=== PATIENT | male | born 1995 | race Caucasian/White ===

== ENCOUNTER 2022-04-21 22:01 | Emergency (ER) | payer BC, OTHER ==
[2022-04-21 22:17] VITALS: BP 138/84; PULSE 85; RESP 16; TEMP 98; BMI 20.9
== END 2022-04-21 22:36 | disposition home or self-care (01) ==
LOC: FER 22:01
DX: Z11.3 Encounter for screening for infections with a predominantly sexual mode of transmission (principal)
CPT/HCPCS: 36415; 87491; 87591; 99283-25